=== PATIENT | female | born 1940 | race Two or more races ===

== ENCOUNTER 2016-06-18 18:41 | Emergency (ER) | payer MEDICARE, OTHER ==
[2016-06-18 19:54] LABS: ABSOLUTE NEUTROPHIL COUNT 4.6 K/mm3 (1.8-7.7); BASO % 0.4 % (0.2-1.0); EOS # 0.1 (0.0-0.5); EOS % 1.6 % (0.9-2.9); HEMATOCRIT 39.4 % (37.0-47.0); HEMOGLOBIN 12.7 gm/l (12.0-16.0); IMM NEUT% 0.2 % (0-1); LYMPH # 3.2 (1.0-4.8); LYMPH % 37.8 % (15-45); MEAN CELL VOLUME 90.6 fl (81.0-99.0); MEAN CORPUSCULAR HEMOGLOBIN 29.2 pg (27.0-31.0); MEAN CORPUSCULAR HGB CONC 32.2 g/dl (33.0-37.0); MEAN PLATELET VOLUME 12.7 fl (7.4-10.4); MONO # 0.6 (0.0-0.8); MONO % 6.5 % (4-12); NEUT % 53.5 % (43-75); PLATELET COUNT 172 K/mm3 (130-400); RED CELL DISTRIBUTION WIDTH 13.1 % (11.5-14.5)
[2016-06-18 20:07] LABS: ALB/GLOB RATIO 1.4 (>1.0); ALBUMIN 4.4 gm/dL (3.5-5.7); CALCIUM 9.3 mg/dL (8.6-10.3)
[2016-06-18 20:32] LABS: SPECIFIC GRAVITY 1.015 (1.001-1.030); URINE APPEARANCE CLEAR; URINE BILIRUBIN NEGATIVE (NEGATIVE); URINE BLOOD 2+ (NEGATIVE); URINE COLOR YELLOW; URINE GLUCOSE (UA) NEGATIVE (NEGATIVE); URINE LEUKOCYTE ESTERASE NEGATIVE (NEGATIVE); URINE NITRITE NEGATIVE (NEGATIVE); URINE PROTEIN NEGATIVE (NEGATIVE); URINE UROBILINOGEN NORMAL (0-1 mg/dl)
[2016-06-18 20:39] LABS: URINE EPITHELIAL CELLS 0 /hpf; URINE WBC 0-1 /hpf
[2016-06-18 20:40] LABS: URINE BACTERIA FEW
--- NOTE | 2016-06-19 06:32 | CT ---
Examination: Noncontrast CT scans of the Abdomen and Pelvis Clinical indication: Diffuse abdominal pain. Nausea. History of gastritis. Comparison: 09/18/2011. Technique: Multidetector CT scanner was utilized. No oral or intravenous contrast was administered. Axial images were acquired from just above the domes of the diaphragm to the iliac crest. A CT scan of the pelvis was carried out from the iliac crest to the initial tuberosities. Sagittal, axial and coronal stacked 5 mm images were reviewed. Findings: Abdomen CT (noncontrast): There is basilar scarring in the right middle lobe and lingular distribution with bronchiectasis. Peripheral nodular densities are noted near these regions as well. The largest is 5 mm in size. Scattered emphysematous changes also present. There is no effusion. Cyst within the lateral segment left lobe liver is again noted. The remainder of the unenhanced liver is grossly unremarkable. Gallbladder is not visualized. There is no evidence of bladder obstruction. The spleen is unremarkable. The pancreas is normal in size and contours. No inflammatory stranding is identified. The pancreatic duct is unremarkable. The adrenals are unremarkable. There is a 2 cm extra cortical cyst in the interpolar distribution left kidney. Small peripheral calcification is noted. No nephrolithiasis or hydronephrosis is identified. After chronic plaquing of the abdominal aorta is evident. There is no aneurysmal dilatation. The stomach is unremarkable. The visualized segments of small and large bowel are within normal limits. The osseous structures exhibit no displaced fracture. No lytic or blastic lesions are identified. Pelvic CT findings (noncontrast): The distal ureters and bladder are unremarkable. Uterus is surgically absent. There are no adnexal masses. No adenopathy is identified. Mild atherosclerotic plaquing the iliac vessels are noted. There is diverticulosis without evidence of acute diverticulitis. The appendix is unremarkable. No displaced fractures are identified. There are no gross osteolytic or blastic lesions. The overlying soft tissues are unremarkable. IMPRESSION: 1. No evidence of acute inflammatory or obstructive process involving the abdomen and pelvis. 2. Evidence of prior atypical pneumonia with lingular and right middle lobe bronchiectasis and scarring. Basilar lung nodules are noted. A nonemergent CT scan of the chest should be considered. 3. Left renal cyst with some complication. Follow-up nonemergent renal ultrasound should be considered. 4. Hepatic cyst. 5. Atherosclerosis. 6. Diverticulosis without evidence of acute diverticulitis. 7. Prior hysterectomy. 8. Normal appendix. 9. Prior cholecystectomy. Findings were communicated by [facility] to the emergency department at: 2246 hours 06/18/2016
== END 2016-06-19 00:11 | disposition home or self-care (01) ==
LOC: ED 18:41
DX: R51 Headache (principal); M54.9 Dorsalgia, unspecified; R91.8 Other nonspecific abnormal finding of lung field; E78.5 Hyperlipidemia, unspecified; E78.00 Pure hypercholesterolemia, unspecified; I10 Essential (primary) hypertension; Z79.899 Other long term (current) drug therapy; Z88.0 Allergy status to penicillin